=== PATIENT | male | born 1945 | race Caucasian/White ===

== ENCOUNTER 2017-03-18 13:04 | Emergency (ER) | payer OTHER ==
[2017-03-18] MEDS: CEPHALEXIN 500 MG CAP PO (16:34)
[2017-03-18] MEDS: TRIMETHOPRIM/SULFAMETHOX (DS) TAB PO (16:34)
[2017-03-18] MEDS: IBUPROFEN 600 MG TAB PO (16:34)
== END 2017-03-18 17:30 | disposition home or self-care (01) ==
LOC: FTE 13:04
DX: L02.214 Cutaneous abscess of groin (principal); I10 Essential (primary) hypertension
CPT/HCPCS: 99284